=== PATIENT | female | born 2000 | race African-American/Black ===

== ENCOUNTER 2021-04-13 09:31 | Emergency (ER) | payer OTHER ==
[~2021-04-13] VITALS: Ht 160 cm; Wt 64.4 kg
[2021-04-13] MEDS ORDERED: IBUP200T45 PO (09:40)
[2021-04-13 10:19] LABS: BASO % 0.2 % (0.0-1.0); EOS % 0.5 % (0.0-3.0); HEMATOCRIT 36.7 % (36.0-47.0); HEMOGLOBIN 11.1 g/dl (12.0-15.5); LYMPH # 2.1 10^3/uL (1.5-5.0); LYMPH % 23.7 % (24.0-44.0); MEAN CORPUSCULAR HEMOGLOBIN 23.5 pg (27.0-33.0); MEAN CORPUSCULAR HGB CONC 30.2 g/dl (32.0-36.5); MEAN CORPUSCULAR VOLUME 77.6 fl (80.0-96.0); MONO # 0.7 10^3/uL (0.0-0.8); MONO % 7.7 % (2.0-8.0); NEUTROPHILS # 5.9 10^3/uL (1.5-8.5); NEUTROPHILS % 67.7 % (36.0-66.0); PLATELET COUNT, AUTOMATED 277 10^3/uL (150-450); RED BLOOD COUNT 4.73 10^6/uL (4.00-5.40); WHITE BLOOD COUNT 8.7 10^3/uL (4.0-10.0)
[2021-04-13] MEDS ORDERED: ISOVUE-370 76% 100ML VIAL As Ordered ONE (10:21)
--- NOTE | 2021-04-13 10:40 | REP ---
INDICATION: chest pain. COMPARISON: None. FINDINGS: The superior mediastinal structures are midline. The cardiac silhouette is unremarkable in size, shape, and position. The diaphragmatic surfaces of the lungs are regular, and the costophrenic angles are clear. The pulmonary kearns are clear. The imaged osseous structures are intact. IMPRESSION: There is no acute cardiopulmonary disease. <Electronically signed by Alberto Box > 04/13/21 1036
[2021-04-13 10:49] LABS: ALBUMIN 3.9 GM/DL (3.2-5.2); ALT/SGPT 28 U/L (12-78); BILIRUBIN,DIRECT 0.3 MG/DL (0.0-0.2); BILIRUBIN,TOTAL 1.5 MG/DL (0.2-1.0); CK-MB VALUE MASS < 1.0 NG/ML (<3.6); CPK CREATINE PHOSPHOKINASE 181 U/L (26-192); MB/CK RELATIVE INDEX 0.55 (< OR =4); TOTAL PROTEIN 6.7 GM/DL (6.4-8.2); TROPONIN I < 0.02 NG/ML (< 0.10)
--- NOTE | 2021-04-13 10:54 | REP ---
INDICATION: chest pain. COMPARISON: CXR 04/13/2021 TECHNIQUE: CT angiogram chest performed following the intravenous administration of 75 cc of Isovue 370. Sagittal and coronal reconstruction images are performed. FINDINGS: Lungs: Clear, no infiltrate or nodule. No pneumothorax or pneumomediastinum. Mediastinum: No adenopathy. Thymic remnant superior mediastinum, normal. Pulmonary arteries: No evidence of pulmonary embolism. Ronda: No pathologic sized adenopathy. Axilla: No adenopathy. Pleura: No effusion, pleural thickening, pleural plaque or pleural based mass.. Heart: Not enlarged. No pericardial thickening or effusion Thoracic aorta: No aneurysm or dissection. Upper abdominal structures: No hiatal hernia. Visualized solid organs and portions of gallbladder, stomach and bowel loops seen were unremarkable. No free air in the upper abdomen. Visualized osseous structures: Unremarkable. IMPRESSION: No CT evidence of pulmonary embolism.No infiltrate seen. No mediastinal or hilar pathologic sized adenopathy. No pneumothorax, pneumomediastinum, bony abnormality, free air in the upper abdomen or other acute finding. No aortic aneurysm or dissection. <Electronically signed by Colby Aguilera > 04/13/21 1051
[2021-04-13] MEDS ORDERED: KETOROLAC 30 MG/ML 1ML VIAL IV ONE (10:55)
[2021-04-13] MEDS ORDERED: ONDANSETRON 4MG/2ML VIAL IV ONE (10:55)
[2021-04-13] MEDS ORDERED: IBUP-1022 PO ×2 (10:57→11:33)
[2021-04-13 11:30] VITALS: BP 124/79
[2021-04-13] MEDS ORDERED: ZOFR4TAB16 PO (11:33)
[2021-04-13] MEDS ORDERED: PERC5TAB12 PO (11:34)
--- NOTE | 2021-04-14 04:23 | ECGEPIP ---
[facility] - ED Test Date: 2021-04-13 Pat Name: RAMON MULLEN Department: Room: - Gender: Female Medical Assistant Dermatology: MARTINA : 2000 Requested By: Margareth Boone Order Number: [id number] Reading MD: Kb Hooker Measurements Intervals [place] Rate: 71 P: 61 [place]: 152 QRS: 91 QRSD: 86 T: 71 QT: 400 QTc: 434 Interpretive Statements Normal sinus rhythm Rightward axis Early repolarization NO PRIORS FOR COMPARISON Electronically Signed on 04-14-2021 4:23:42 EDT by Kb Hooker
== END 2021-04-13 11:54 | disposition home or self-care (01) ==
LOC: M ED 09:31
DX: R07.9 Chest pain, unspecified (principal)
CPT/HCPCS: 71046; 71275; 80047; 80076; 82550; 82553; 84484; 84702; 85025; 93005; 96374; 99284; J1885; Q9967

== ENCOUNTER 2021-07-31 17:13 | Emergency (ER) | payer OTHER ==
[~2021-07-31] VITALS: Ht 160 cm; Wt 59.8 kg
[~2021-07-31 17:13] MED LIST: IBUP-1022 PO; IBUP200T46 PO; PERC5TAB12 PO; ZOFR4TAB16 PO
[2021-07-31 17:14] VITALS: BP 128/73
--- OUTSIDE RECORDS SUMMARY | 2021-07-31 17:22 | CCD ---
Author Author [facility] Organization [facility] Address Unknown Phone Unavailable Support Name Relationship Address Phone [facility] Next Of Kin [address] [place] [address] Unavailable JASON ASH Next Of Kin [address] [address] Re-disclosure Warning The records that you are about to access may contain information from federally-assisted alcohol or drug abuse programs. If such information is present, then the following federally mandated warning applies: This information has been disclosed to you from records protected by federal confidentiality rules (42 CFR part 2). The federal rules prohibit you from making any further disclosure of this information unless further disclosure is expressly permitted by the written consent of the person to whom it pertains or as otherwise permitted by 42 CFR part 2. A general authorization for the release of medical or other information is NOT sufficient for this purpose. The Federal rules restrict any use of the information to criminally investigate or prosecute any alcohol or drug abuse patient.The records that you are about to access may contain highly sensitive health information, the redisclosure of which is protected by Article 27-F of the [facility] Public Health law. If you continue you may have access to information: Regarding HIV / AIDS; Provided by facilities licensed or operated by the [facility] Office of Mental Health; or Provided by the [facility] Office for People With Developmental Disabilities. If such information is present, then the following [facility] mandated warning applies: This information has been disclosed to you from confidential records which are protected by state law. State law prohibits you from making any further disclosure of this information without the specific written consent of the person to whom it pertains, or as otherwise permitted by law. Any unauthorized further disclosure in violation of state law may result in a fine or correction sentence or both. A general authorization for the release of medical or other information is NOT sufficient authorization for further disc losure. Immunizations Vaccine Date Status Description Data Source(s) COVID-19 VACCINE Moderna 02/02/2021 12:00:00 AM EDT completed [place] Vaccine Series Complete: YESThis Data wa s Submitted to [facility] Via [employer]. COVID-19 VACCINE Moderna 01/05/2021 12:00:00 AM EDT completed [place]SIIS Vaccine Series Complete: NOThis Data was Submitted to [facility] Via [employer]. Medications No Information Insurance Providers Payer name Policy type / Coverage type Policy ID Covered green party ID Covered green party's relationship to baltazar Policy Baltazar Plan Information [facility] ACTIVE DUTY [id number] Problems, Conditions, and Diagnoses No Information Surgeries/Procedures No Information Results No Information Social History No Information
[2021-07-31] MEDS ORDERED: IBUPROFEN 800 MG TAB PO ONE (21:45)
[2021-07-31] MEDS ORDERED: ONDANSETRON 4 MG ORAL DISINTEGRATING TAB PO ONE (21:45)
[2021-07-31 22:12] LABS: RSV AMPLIFICATION NEGATIVE (NEGATIVE)
--- NOTE | 2021-07-31 23:18 | REPVR ---
PROCEDURE INFORMATION: Exam: XR Chest Exam date and time: 07/31/2021 10:29 PM Age: 21 years old Clinical indication: Cough TECHNIQUE: Imaging protocol: XR of the chest. Views: 2 views. COMPARISON: CR Chest, 2 view PA, Lat 04/13/2021 10:12 AM FINDINGS: Lungs: Unremarkable. No consolidation. No pulmonary edema. Pleural spaces: Unremarkable. No pleural effusion. No pneumothorax. Heart/Mediastinum: Unremarkable. No cardiomegaly. Bones/joints: Unremarkable. Other findings: Incidental note is made of a piercing in the umbilical region. IMPRESSION: No acute findings. Electronically signed by: Max Banegas On 07/31/2021 23:17:42 PM
[2021-07-31] MEDS ORDERED: ONDA4TAB6 PO (23:21)
--- OUTSIDE RECORDS SUMMARY | 2021-07-31 23:31 | CCD ---
Author Author [facility] Organization [facility] Address Unknown Phone Unavailable Support Name Relationship Address Phone [facility] Next Of Kin [address] [place] [address] Unavailable JASON ASH Next Of Kin [address] [place] [address] Re-disclosure Warning The records that you are [...] is protected by Article 27-F of the [facility] Public Health law. If you continue you may have access to information: Regarding HIV / AIDS; Provided by facilities licensed or operated by the [facility] Office of Mental Health; or Provided by the [facility] Office for People With Developmental Disabilities. If such information is present, then the following [facility] mandated warning applies: This information [...] law may result in a fine or senior living sentence or both. A general authorization for the release of medical or other information is NOT sufficient authorization for further disc losure. Immunizations Vaccine Date Status Description Data Source(s) COVID-19 VACCINE Moderna 02/02/2021 12:00:00 AM EDT completed [facility] Vaccine Series Complete: YESThis Data wa s Submitted to [facility] Via [employer]. COVID-19 VACCINE Moderna 01/05/2021 12:00:00 AM EDT completed [place]SIIS Vaccine Series Complete: NOThis Data was Submitted to [facility] Via [employer]. Medications No Information Insurance Providers Payer name Policy type / Coverage type Policy ID Covered libertarian ID Covered libertarian's relationship to baltazar Policy Baltazar Plan Information [facility] ACTIVE DUTY [id number] Problems, Conditions, and Diagnoses No Information Surgeries/Procedures No Information Results No Information Social History No Information
== END 2021-07-31 23:39 | disposition home or self-care (01) ==
LOC: M ED 17:13
DX: J06.9 Acute upper respiratory infection, unspecified (principal)